=== PATIENT | male | born 1960 | race Caucasian/White ===

== ENCOUNTER 2023-06-08 15:48 | Day surgery (SDC) | payer BC, SELFPAY ==
[2023-06-08] VITALS (17 sets, daily range): BP systolic 139–175; BP diastolic 67–97; PULSE 80–95; RESP 14–18; TEMP 36.6–37.2; O2SAT 92–98; BMI 25.1
--- NOTE | 2023-06-08 15:54 | ED_ITS ---
HPI - General Adult General Date Seen: 06/08/23 Chief complaint: Sore Throat Stated complaint: Throat issues Time Seen by Provider: 06/08/23 15:54 History of Present Illness HPI narrative: 62-year-old gentleman referred to the ER today from the [facility] for e valuation of sore throat and asymmetric throat swelling. He is generally healthy. He is a smoker. He has a history of previous umbilical hernia repair and left kidney surgery. Rapid strep test from clinic was negative today. Patient notes that he began to have mild throat irritation the 5 days ago on night. 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 He had a mild sore throat the following day on Wednesday. However on Wednesday he noted that the pain in his throat really started to get worse and in particular was worse on the right side. He has had worsening pain over the subsequent couple of days. His special years when he tries to swallow. He is not having any trouble breathing. He has had low-grade fevers. He has had some chills and body aches. No headache. No cough. No vomiting. No diarrhea. No rash. He is not diabetic or immunosuppressed. No known sick contacts. Related Data Previous Rx's Medication Instructions Recorded amoxicillin 500 mg-potassium 1 tab PO TID #30 tabs 06/08/23 clavulanate 125 mg tablet (Augmentin) oxycodone 5 mg tablet,oral ONLY 5 mg PO Q4-6H PRN pain #14 ea 06/08/23 (not feeding tubes) Allergies Allergy/AdvReac Type Severity Reaction Status Date / Time No Known Drug Allergies Allergy Verified 06/08/23 17:58 [facility] Social History Smoking Status: Current every day smoker What tobacco products do you use: cigarettes Second hand tobacco smoke exposure: No Non-prescribed substance use: denies use service: No Exam Narrative: Exam Narrative: Constitutional: Appears well-developed and well-nourished. Alert. Conversant. Phonation normal. Non toxic. HENT: Head: Atraumatic. Nose: Nose normal. Mouth/Throat: Oral mucosa is clear and moist. no trismus. Pharynx is erythematous bilaterally. He has marked inflammation and erythema of the right soft palate and peritonsillar pillar with some deviation of the uvula from the right to the left. Suspicious for right peritonsillar abscess or phlegmon. Overall airway patent. Phonation normal. No stridor. No trismus Eyes: Conjunctivae normal. EOM normal. Pupils equal, round, and reactive to light. No scleral icterus. Neck: Normal range of motion. Neck supple. No tracheal deviation present. Cardiovascular: Normal rate, regular rhythm. No gallop. No friction rub. No murmur heard. Symmetric radial artery pulses Pulmonary/Chest: Effort normal. No stridor. No respiratory distress. No wheezes. No rales. No rhonchi . No tenderness. Abdominal: Soft. No distension. No mass. No HSM. No tenderness. No rebound. No guarding. Musculoskeletal: RUE: Normal range of motion. No tenderness. No deformity LUE: Normal range of motion. No tenderness. No deformity RLE: Normal range of motion. No edema. No tenderness. No deformity LLE: Normal range of motion. No edema. No tenderness. No deformity Lymph: Small right anterior cervical lymph nodes. No left cervix adenopathy Neurological: Alert and oriented to person, place, and time. Normal strength. CN II-VII intact. No sensory deficit. GCS eye subscore is 4. GCS verbal subscore is 5. GCS motor subscore is 6. Normal coordination Skin: Skin is warm and dry. No rash noted. No pallor. Normal capillary refill. Psychiatric: Normal mood. Normal affect. Const: Vital Signs, click to edit/add: Vital Signs - 24 hr 06/08/23 15:54 06/08/23 16:41 Temperature 98.5 F Pulse Rate [Pulse Oximeter] 93 Respiratory Rate 18 Blood Pressure [Ri ght Upper Arm] 175/79 H Pulse Oximetry 98 94 Oxygen Delivery Me thod Room Air Course Course ED Course: Recheck-verbal phone call from [facility] indicates that there is a report available for this patient. I reviewed the report and it does reveal evidence for a 2.2 cm peritonsillar abscess on the right which correlates clinically with the patient's symptoms Reevaluation(s) Reevaluation #1: Discussed the finding confirming abscess with the patient and his . We discussed options including aspiration under local anesthesia here in the ER which is something I am comfortable doing-verses incision and drainage by ENT in the OR with sedation. Patient strongly prefers to go to the OR and have sedation We made contact with ENT, Dr. Mandujano. He agrees with IV antibiotics and IV corticosteroids (already administered and he will come to the ER to evaluate the patient tonight with an eye toward taking him to the OR for incision and drainage. Vital Signs Vital signs: Initial Vital Signs Temperature 98.5 F 06/08/23 15:54 Temperature Source Temporal Artery Scan 06/08/23 15:54 Pulse Rate 93 06/08/23 15:54 Respiratory Rate 18 06/08/23 15:54 Blood Pressure 175/79 H 06/08/23 15:54 Blood Pressure Mean 111 H 06/08/23 15:54 Pulse Oximetry 98 06/08/23 15:54 Oxygen Delivery Method Room Air 06/08/23 15:54 Vital Signs Temperature 98.5 F 06/08/23 15:54 Pulse Rate 93 06/08/23 15:54 Respiratory Rate 18 06/08/23 15:54 Blood Pressure 175/79 H 06/08/23 15:54 Pulse Oximetry 98 06/08/23 15:54 Oxygen Delivery Method Room Air 06/08/23 15:54 Temperature 97.9 F 06/08/23 23:50 Pulse Rate 85 06/08/23 23:50 Respiratory Rate 16 06/08/23 23:50 Blood Pressure 155/89 H 06/08/23 23:50 Pulse Oximetry 98 06/08/23 23:50 Oxygen Delivery Method Room Air 06/08/23 22:44 Medications Administered Medications: Discontinued Medications Generic Name Dose Route Start Last Admin Trade Name Freq PRN Reason Stop Dose Admin Acetaminophen 320 mg 06/08/23 20:19 06/08/23 21:48 Acetaminophen 160 Mg/5 Ml Cup PO 320 mg Q4H PRN Administration Dexamethasone 4 mg 06/08/23 16:12 06/08/23 16:46 Dexamethasone 4 Mg/Ml Vial IV 06/08/23 16:13 4 mg ONCE ONE Administration Hydromorphone HCl 0.5 mg 06/08/23 16:12 06/08/23 19:27 Hydromorphone 0.5 Mg/0.5 Ml Inj IVP 0.5 mg Q1H PRN Administration Pain Ampicillin Sodium/Sulbactam 100 mls @ 200 mls/hr 06/08/23 16:12 06/08/23 17:20 Sodium 3 gm/ Sodium Chloride IVPB 06/08/23 16:13 Infused ONCE ONE Infusion Lactated Ringer's 1,000 mls @ 35 mls/hr 06/08/23 20:20 06/08/23 20:54 Lactated Ringers 1000 Ml IV 35 mls/hr .Q24H SHAN Infusion Ampicillin Sodium/Sulbactam 100 mls @ 200 mls/hr 06/08/23 22:00 06/08/23 22:06 Sodium 1.5 gm/ Sodium Chloride IVPB 200 mls/hr Q6H SHAN Administration Ibuprofen 200 mg 06/08/23 20:19 06/08/23 21:49 Ibuprofen 100 Mg/5 Ml Susp PO 200 mg Q4H PRN Administration Pain Ondansetron HCl 4 mg 06/08/23 16:12 06/08/23 16:46 Ondansetron 2 Mg/Ml Inj IVP 06/08/23 16:13 4 mg ONCE ONE Administration Medical Decision Making MDM Narrative Medical decision making narrative: 62-year-old gentleman presenting to the ER today from clinic with sore throat worsening for the past 4-5 days, in particular worsening for the past 2-3 days with asymmetric right Tonsillar swelling. Clinical exam and CT imaging confirm a right peritonsillar abscess. Labs show leukocytosis, otherwise reassuring patient has no history of diabetes or other immunosuppression P He does have significant swelling on the right and bilateral tonsillitis but at this point airway is patent. No stridor. No stress miss. He is controlling his oral secretions. No need for emergent airway intervention. He has received intravenous Unasyn and IV Decadron. He will need drainage for the abscess in addition to his IV antibiotics. Discussed options for drainage including aspiration done here in the ER under local anesthesia verses surgical intervention in the OR under sedation. Patient strongly prefers going to the OR under sedation. Discussed with ENT, Dr. Mandujano who will come to the ER tonight to evaluate the patient with an eye toward taking him to the OR. Patient has no previous diagnosed heart or lung disease. He is a tobacco user. No cardiac murmur. No history of coronary disease. Lung sounds are clear on my exam. No wheezing or other symptoms of COPD at this time. At this point the benefit of anesthesia and sedation to appropriately manage his peritonsillar abscess would outweigh the risk of cardiovascular complications from anesthesia. Overall would be low risk for anesthesia. He has been NPO since 09:30 this morning. Incidentally noted to have a pulmonary nodule. Discussed with the patient in detail. Recommended outpatient follow-up with primary care to arrange follow-up CT in 3 months. Lab Data Labs: Lab Results 06/08/23 Range/Units 16:24 WBC 12.63 H (4.50-11.00) K/uL RBC 4.70 (4.30-5.90) m/uL Hgb 15.0 (13.5-17.5) gm/dL Hct 45.0 (37.0-53.0) % MCV 96 (80-100) fL MCH 32 (26-34) pg MCHC 33 (32-36) gm/dL RDW Coeff of Katie 12.1 (11.5-15.5) % Plt Count 270 (140-440) K/uL Neut % (Auto) 79.5 H (42.0-72.0) % Lymph % (Auto) 12.6 L (20-44) % Forrest % (Auto) 6.5 (0.0-11.0) % Eos % (Auto) 1.0 (0.0-7.0) % Baso % (Auto) 0.2 (0.0-3.0) % Neut # (Auto) 10.00 H (1.7-7.0) K/uL Lymph # (Auto) 1.60 (0.90-2.90) K/uL Forrest # (Auto) 0.80 (0.00-0.90) K/UL Eos # (Auto) 0.10 (0.00-0.50) K/uL Baso # (Auto) 0.00 (0.00-0.30) K/uL Abs Immat Gran (auto) 0.00 (0.00-0.30) K/uL Imm/Tot Granulo (auto) 0.2 % Sodium 141 (135-149) mmol/L Potassium 4.0 (3.6-5.1) mmol/L Chloride 109 (96-114) mmol/L Carbon Dioxide 24 (20-32) mmol/L Anion Gap 8 (7-15) mEq/L BUN 14 (7-30) mg/dL Creatinine 0.8 (0.5-1.5) mg/dL Estimated Creat Clear 78.07 Estimated GFR 99 ml/min Glucose 99 (60-115) mg/dL Calcium 9.2 (8.4-10.6) mg/dL Total Bilirubin 0.7 (0.1-1.5) mg/dL AST 21 (12-35) U/L ALT 12 (4-50) U/L Alkaline Phosphatase 52 (40-150) U/L Total Protein 7.5 (6.0-8.3) g/dL Albumin 4.2 (3.3-5.0) g/dL Imaging Data CT neck: Attestation: I have reviewed the pertinent imaging results. Radiologist's impression: IMPRESSION: 1. Asymmetric enlargement of the right palatine tonsil with rim enhancing fluid collection measuring up to 2.2 cm concerning for tonsillar abscess. 2. Right upper lobe 1.2 cm noncalcified pulmonary nodule. Recommend short-term interval follow-up CT in 3 months, PET-CT or tissue sampling. Discharge Plan Discharge Clinical Impression: Abscess, peritonsillar, Incidental pulmonary nodule Patient Disposition: XFER to OR
--- NOTE | 2023-06-08 16:12 | CT_ITS ---
Patient: JOHN MAYNARD Facility:?[facility] Patient ID:?[id number] Site Patient ID:?[id number]. Site :?[id number] Study:?CT-ST Neck W/ 85CC ISOVUE 370-06/08/2023 6:10:25 PM Ordering Physician:MINA Final Report: INDICATION: Pharyngitis, right peritonsillar swelling. TECHNIQUE: CT soft tissue of the neck was acquired with 85 cc Isovue 370 contrast. COMPARISON: None available. FINDINGS: Skull base: Unremarkable. Pharynx/Larynx/Trachea: Epiglottis is normal. Airway is patent. There is asymmetric enlargement the right palatine tonsil with heterogeneous tonsillar enhancement and compatible with tonsillitis. There is a rim enhancing 1.7 x 1.3 x 2.2 cm hypodense collection centered within the right palatine tonsil concerning for abscess. No retropharyngeal thickening or fluid collection. Salivary glands: Unremarkable. Thyroid gland: Unremarkable. No significant nodules. Lymph nodes: No lymphadenopathy. Vessels: Mild atherosclerotic calcifications at the carotid bifurcations without significant luminal narrowing. Bones: Mild multilevel degenerative disc disease as well as facet arthropathy on the right at C3-C4 and on the left at C2-C3. Sinuses: Polyp versus mucous retention cysts within the maxillary sinuses. Otherwise clear. Misc: No cervical lymphadenopathy by size criteria. Lung apices: 1.2 cm noncalcified pulmonary nodule within the right lung apex. Minimal centrilobular emphysema. IMPRESSION: 1. Asymmetric enlargement of the right palatine tonsil with rim enhancing fluid collection measuring up to 2.2 cm concerning for tonsillar abscess. 2. Right upper lobe 1.2 cm noncalcified pulmonary nodule. Recommend short-term interval follow-up CT in 3 months, PET-CT or tissue sampling. Please note that all CT scans at this facility use dose modulation, iterative reconstruction, and/or weight-based dosing when appropriate to reduce radiation dose to as low as reasonably achievable. Dictated by Nan Muñoz MD @ 06/08/2023 6:31:49 PM ----- ADDENDUM ----- Confirmed report was received by Dr. Vanessa on 06/08/2023 at 6:33 p.m. Dictated by Nan Muñoz MD @ Jun 08 2023 6:39PM Signed by:?Nan Muñoz MD @06/08/2023 6:31:49 PM (Electronic Signature)
[2023-06-08 16:41] LABS: Basophils Percent Auto 0.2 % (0.0-3.0); Immature Granulocytes Pct Auto 0.2 %; Lymphocytes Percent Auto 12.6 % (20-44); Mean Corpuscular HGB Conc 33 gm/dL (32-36); Mean Corpuscular Hemoglobin 32 pg (26-34); Mean Corpuscular Volume 96 fL (80-100); Monocytes Percent Auto 6.5 % (0.0-11.0); Neutrophils Percent Auto 79.5 % (42.0-72.0); Platelet Count* 270 K/uL (140-440); RDW Coefficient of Variation % 12.1 % (11.5-15.5); White Blood Count* 12.63 K/uL (4.50-11.00)
[2023-06-08] MEDS: ONDANSETRON 2 MG/ML inj 4 MG IVP (16:46)
[2023-06-08] MEDS: HYDROmorphone 0.5 mg/0.5 ml inj IVP ×2 (16:46→19:27)
[2023-06-08] MEDS: dexAMETHasone 4 MG/ML VIAL IV (16:46)
[2023-06-08] MEDS: AMPICILLIN/SULBACTAM 3 GM in 0.9 % SODIUM CHLORIDE Mini-bag 100 ML IVPB (16:47)
[2023-06-08 17:00] LABS: Albumin* 4.2 g/dL (3.3-5.0); Chloride* 109 mmol/L (96-114); Sodium* 141 mmol/L (135-149)
[2023-06-08 17:02] LABS: Bilirubin Total* 0.7 mg/dL (0.1-1.5); Creatinine* 0.8 mg/dL (0.5-1.5); Est. Creatinine Clearance* 78.07; Estimated Glomerular Filt Rate 99 ml/min
[2023-06-08 17:03] LABS: Alanine Aminotransferase* 12 U/L (4-50); Alkaline Phosphatase* 52 U/L (40-150); Anion Gap 8 mEq/L (7-15); Aspartate Amino Transferase* 21 U/L (12-35); Blood Urea Nitrogen* 14 mg/dL (7-30); Calcium* 9.2 mg/dL (8.4-10.6); Carbon Dioxide* 24 mmol/L (20-32); Glucose* 99 mg/dL (60-115); Total Protein* 7.5 g/dL (6.0-8.3)
[2023-06-08 17:08] LABS: Slide Review Reflex No
--- NOTE | 2023-06-08 20:17 | W.PM.ENTCN ---
HPI- ENT Consult Date of Consult Date Seen: 06/08/23 Consult date: 06/08/23 Requesting Physician: Other Primary Care Provider: Aracelis Willson DO Consult Narrative Reason for consult: Right peritonsillar abscess Narrative: Derick Floyd is a 62 year old male several a history of sore throat increasing. He has significant pain with opening although is able to open widely. Pain is localized to the right side. He is not toxic no prior history of significant tonsil trouble. He are no reviewed he has already received a dose of Decadron and Unasyn PFSH PFS Social History Smoking Status: Current every day smoker What tobacco products do you use: cigarettes Second hand tobacco smoke exposure: No Non-prescribed substance use: denies use service: No Meds Home Medications and Allergies Allergies Allergy/AdvReac Type Severity Reaction Status Date / Time No Known Drug Allergies Allergy Verified 06/08/23 17:58 Exam Narrative: Exam Narrative: General skin neuro respiratory gait peripheral vascular vocal quality skin of head neck are all negative except Bright red right soft palate and uvula with significant boggy edema to the uvula normal lower airway neck parotid thyroid negative, voice normal Const: Vital Signs, click to edit/add: Vital Signs - 24 hr 06/08/23 15:54 06/08/23 16:41 06/08/23 20:15 Temperature 98.5 F Pulse Rate [Pulse Oximeter] 93 Respiratory Rate 18 Blood Pressure [Ri ght Upper Arm] 175/79 H Pulse Oximetry 98 94 Oxygen Delivery Me thod Room Air Room Air ENT-CN: Result Labs Labs: Short CBC 06/08/23 Range/Units 16:24 WBC 12.63 H (4.50-11.00) K/uL Hgb 15.0 (13.5-17.5) gm/dL Hct 45.0 (37.0-53.0) % Plt Count 270 (140-440) K/uL BMP 06/08/23 16:24 Sodium 141 Potassium 4.0 Chloride 109 Carbon Dioxide 24 BUN 14 Creatinine 0.8 Glucose 99 Calcium 9.2 Liver Function 06/08/23 Range/Units 16:24 Total Bilirubin 0.7 (0.1-1.5) mg/dL AST 21 (12-35) U/L ALT 12 (4-50) U/L Alkaline Phosphatase 52 (40-150) U/L Albumin 4.2 (3.3-5.0) g/dL Assessment and Plan Assessment and plan (1) Abscess, peritonsillar: Status: Acute Plan Right peritonsillar abscess with uvular and palatal cellulitis. Discussed options of incision and drainage versus observation with IV antibiotics and steroids. I would favor incision and drainage giving the involvement of the palate in addition to the peritonsillar space. There is some chance this is intra tonsillar as well. Will determine at time of surgery. Risks of surgery including anesthesia bleeding recurrence etc. all reviewed.
[2023-06-08] MEDS: LACTATED RINGERS 1000 ML 1,000 ML 35 ML IV (20:20)
--- NOTE | 2023-06-08 20:37 | W.PM.ENTPROC ---
Procedure Note Date of procedure: 06/08/23 Procedure: Preoperative diagnosis right peritonsillar abscess, uvular cellulitis Postoperative diagnosis same Procedure amputation of infected uvula, incision and drainage right peritonsillar abscess After general endotracheal anesthesia was induced the patient was prepped draped usual fashion the McIvor mouth gag inserted the tongue retracted forward. The uvula was swollen to approximately 3 cm length and 1.5 cm diameter approximately 10 times normal size or more. The lower half was amputated with a needlepoint cautery decompressing the brawny edema. An incision was made with the needlepoint cautery just above the right tonsil pole overlying the most swollen portion of the palate. Is about 3 mm deep I encountered the abscess cavity. Culture was obtained. The cavity was widened and all the pus was drained. Was proximately 5 mL. The cavity was irrigated with a red rubber catheter and saline. Bleeding was controlled with Coblation. The patient procedure well was taken recovery satisfactory condition blood loss was 5 mL. Cultures pending Surgeon: Ki Mandujano MD
--- NOTE | 2023-06-08 20:57 | P.ANES_ITS ---
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
--- NOTE | 2023-06-08 21:38 | SUR.PHASEI ---
patient met discharge criteria per [employer].
[2023-06-08] MEDS: ACETAMINOPHEN 160 MG/5 ML CUP 320 MG PO (21:48)
[2023-06-08] MEDS: IBUPROFEN 100 MG/5 ML SUSP 200 MG PO (21:49)
[2023-06-08] MEDS: AMPICILLIN/SULBACTAM 1.5 GM in 0.9 % SODIUM CHLORIDE Mini-bag 100 ML IVPB (22:06)
--- NOTE | 2023-06-08 23:01 | PC.NURSE ---
Initial VS on Med Surg by RN was actually @ 2125. 2024 was entered in error by RN.
--- NOTE | 2023-06-08 23:50 | PC.NURSE ---
Pt dischg @ 8697. VSS. No N/V. Pain controlled. Walked out with spouse. Instructions given. IV removed by RN intact.
== END 2023-06-08 23:50 | disposition home or self-care (01) ==
LOC: ED 19:49 → OR 20:15 → MEDSURG 21:37
PROVIDERS: Emergency Provider Emergency Medicine; PCP Family Medicine; Visit Provider Otolaryngology
PROC: 0C9PXZZ Drainage of Tonsils, External Approach (ICD-10-PCS; CPT 42700; principal; 2023-06-08 20:00)
DX: J36 Peritonsillar abscess (principal); K12.2 Cellulitis and abscess of mouth; R91.1 Solitary pulmonary nodule; F17.210 Nicotine dependence, cigarettes, uncomplicated
CPT/HCPCS: 42140; 42700; 00170; 36415; 70491; 80053; 85025; 87070; 87075; 87205; 88305; 94761; 99140; 99285; A9270; J0295; J0330; J1100; J1170; J2405; J2704; J3010; J7120; Q9967

== ENCOUNTER 2024-10-06 15:01 | Emergency (ER) | payer BC, SELFPAY ==
--- OUTSIDE RECORDS SUMMARY | 2024-10-06 15:03 | XMS_ITS | Clinical Summary ---
Author Organization [facility] US PREVENTIVE MEDICINE [facility] Address [address] [place] [address] Care Team Providers Care Seal Delivery Vehicle Officer Name Role Phone Aracelis Willson DO Primary Care Provider Allergies Active Allergy Reactions Criticality Noted Date Comments Oxycodone Hives 09/06/2023 Medications triamcinolone 0.1 % ointmentIndicat ions:Dry skin dermatitis Apply topically to affected area(s) two times daily. 30 g 5 Active aspirin 81 mg enteric coated tabletIndicatio ns:Left carotid bruit Take 1 Tablet (81 mg) by mouth once daily with a meal. 100 Tablet 3 5 Active Active Problems No known active problems Encounters Date Type Department Care Team Description 10/04/2024 4:00 PM CDT Ancillary Procedure [facility] [address] [place] [address] Arrived 10/04/2024 Travel 10/03/2024 Telephone [facility] [address] [place] [address] [place], [facility] Referral (INcidental 11mm nodule on a CTA. Will be getting full chest ct prior to referral. Smoker./report recommended pulm consult vs pet CT chest./) 09/20/2024 Telephone [facility] [address] [place] [address] Aracelis Willson DO Questions (CT scan results. ); Referral 09/15/2024 3:00 PM CDT Ancillary Procedure [facility] [address] [place] [address] 09/15/2024 Travel 09/11/2024 Telephone [facility] [address] [place] [address] Aracelis Willson DO Testing 08/25/2024 Orders Only [facility] [address] [place] [address] Karen Rodriguez NP <No scans attached> 08/25/2024 Telephone [facility] [address] [place] [address] Abner Lawson MD Referral 08/21/2024 Telephone [facility] [address] [place] [address] Aracelis Willson DO Imaging (ultrasound of the neck) 08/18/2024 Orders Only [facility] [address] [place] [address] Aracelis Willson DO <No scans attached> 08/15/2024 10:47 AM CDT - 08/15/2024 11:59 PM CDT Hospital Encounter [facility] [address] [place] [address] Aracelis Willson DO Dry skin dermatitis; Left carotid bruit 08/15/2024 Travel 08/07/2024 4:20 PM CDT Office Visit [facility] [address] [place] [address] Aracelis Willson DO Derm Problem (left calf has sore on it for about 3 months/itches- breaks open and is pussy) 08/07/2024 Travel from Last 3 Months Immunizations Immunization Administration Dates Next Due COVID-19 vaccine (Sykio 30mcg/0.3mL) EMIL Adhikari 09/27/2020,09/06/2020 Influenza, IIV4 12/16/2015 Td (Age >=7 Years) 11/26/1998 Tdap 12/30/2023,05/24/2008 Family History Medical History Relation Name Comments Heart Disease Brother valvular disea se Diabetes Father Heart Disease Father valvular disea se Cancer Maternal Aunt 1 lung Thyroid Disease Maternal Aunt 2 hypothyro id Diabetes Maternal Grandmother Cancer Maternal Uncle stomach Hypertension Sister Relation Name Status Comments Brother Father Maternal Aunt 1 Maternal Aunt 2 Maternal Grandmother Maternal Uncle Sister Social History Tobacco Use Types Packs/Day Years Used Date Smoking Tobacco: Every Day Cigarettes Smokeless Tobacco: Never Tobacco Cessation:Ready to Q uit: Not Asked; Counseling Given: Not Answered Alcohol Use Standard Drinks/Week Comments Yes 20 (1 standard drink = 0.6 oz pu re alcohol) 6 pack a night PHQ-2 Answer Date Recorded PHQ-2 TOTAL SCORE 0 12/30/2023 Social Connections Answer Date Recorded Frequency of Communication with Friends and Fami ly 0 05/04/2022 Financial Resource Strain Answer Date R ecorded Difficulty of Paying Living Expenses 3 05/04/2022 Difficulty of Paying Living Expenses Not on file 05/04/2022 Food Insecurity Answer Date Recorded Worried About Running Out of Food in the Last Ye ar 1 05/04/2022 Transportation Needs Answer Date Record ed Lack of Transportation (Medical) 1 05/04/2022 Housing Stability Answer Date Recorded Unable to Pay for Housing in the Last Year 1 05/04/2022 Sex and Gender Information Value Date Recorded Sex Assigned at Not on file 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 Gender Identity Not on file Sexual Orientation Not on file Occupation Industry Job Start Date Job End Date Not on file Not on file Not on file Not on file Obstetrics History Last Filed Vital Signs Vital Sign Reading Time Taken Comments Blood Pressure 142/79 08/07/2024 4:27 PM CDT Pulse 75 08/07/2024 4:27 PM CDT Temperature 36.6 C (97.9 F) 09/06/2023 8:55 AM CDT Respiratory Rate - - Oxygen Saturation 96% 08/07/2024 4:27 PM CDT Inhaled Oxygen Concentration - - Weight 79.7 kg (175 lb 12.8 oz) 08/07/2024 4:27 PM CDT Height 175.3 cm (5' 9) 12/30/2023 8:05 AM CDT Body Mass Index 25.96 12/30/2023 8:05 AM CDT Plan of Treatment Upcoming Encounters Date Type Department Care Team (Late st Contact Info) Description 10/27/2024 10:00 AM CDT Office Visit [facility] [address] [place] [address] Sabas Barr MD [address] [facility] [address] [place] [address] 10/27/2024 2:00 PM CDT Office Visit [facility] [address] [place] [address] Ellis Cordero MD [address] [facility] [[email or web address] [address] [place] [address] Health Maintenance Due Date Last Done Comments HIV for age 15-65 11/17/1974 Pneumococcal series for age 50+ (1 of 2 - PCV) 11/17/1978 Colonoscopy through age 75 11/17/2004 Zoster (shingles) series for age 50+ (1 of 2) 11/17/2009 RSV vaccine for adults or (1 - Risk 60-74 years 1-dose series) 2019 COVID-19 vaccine series (3 - 2023- season) 2023 09/27/2020, 09/06/2020 Influenza Vaccine (#1) 2024 12/16/2015 BMI (ht and wt on same day) for age 18+ 12/29/2024 12/30/2023, 03/01/2017, 12/25/2015, Additional history exists Depression screening for age 12+ 12/29/2024 12/30/2023, 12/10/2015 Lipids for age 45-75 12/29/2028 12/30/2023, 09/16/19 14 Tetanus booster 12/29/2033 12/30/2023, 05/06, 11/26/1998 Hepatitis C screening for age 18-79 Completed 09/15/2013 Hepatitis B series for 19+ Aged Out N o longer eligible based on patient's age to complete this topic Procedures Procedure Name Priority Date/Time Associated Diagnosis Comments CT CHEST WO Routine 10/04/2024 4:06 PM CDT Lung nodule seen on imaging study Nodule of apex of lung Incidental lung nodule, greater than or equal to 8mm CT ANGIO HEAD AND NECK CAROTID Routine 09/15/2024 3:21 PM CDT Nonintractable headache, unspecified chronicity pattern, unspecified headache type US CAROTID DUPLEX BILATERAL REBEKAH 08/15/2024 12:08 PM CDT Dry skin dermatitis Left carotid bruit LIPID PANEL Routine 12/30/2023 8:44 AM CDT Encounter for examination for insurance purposes ANTI HCV Routine 09/15/2013 4:06 PM CDT Need for hepatitis C screening test from Last 3 Months or Most Recently Relevant to Health Maintenance Results * CT CHEST WO (10/04/2024 4:06 PM CDT) Anatomical Region Laterality Modality CHEST, THORAX, HEART Computed To mography 10/05/2024 3:09 PM CDT Narrative 10/05/2024 3:09 PM CDT For Patients: As a result of the Century Cures Act, medical imaging exams and procedure reports are released immediately into your electronic medical record. You may view this report before your referring provider. If you have questions, please contact your health care provider. Indication: Pulmonary nodule Technique: Noncontrast CT chest Please note that all CT scans at this facility use dose modulation, iterative reconstruction, and/or weight-based dosing when appropriate to reduce radiation dose to as low as reasonably achievable. Comparison: CT neck 09/15/2024 Findings: Diffuse thickening of the adrenal glands noted bilaterally. The spleen is not enlarged. Unremarkable visualized pancreas and liver. Normal incompletely distended gallbladder. Visualized thyroid is normal. Atherosclerotic changes. No enlarged lymph nodes. [place] nodule within the right upper lobe measures 1.4 x 1.2 cm. Slightly lobular margins noted. Paraseptal emphysema. No fracture. Tiny nodules are present also within the right middle lobe measuring 2 millimeters or less. Impression: 1.4 x 1.2 cm right upper lobe pulmonary nodule. CT PET recommended. Please note that all CT scans at this facility use dose modulation, iterative reconstruction, and/or weight-based dosing when appropriate to reduce radiation dose to as low as reasonably achievable. Dictated by Derick Trent MD @ 10/05/2024 3:09:00 PM (Electronically Signed) Procedure Note Derick Trent MD - 10/05/2024 For Patients: As a result of the Cures Act, medical imagingexams and procedure reports are released immediately into your electronicmedical record. You may view this report before your referring provider.If you have questions, please contact your health care provider. Indication: Pulmonary nodule Technique: Noncontrast CT chest Please note that all CT scans at this facility use dose modulation,iterative reconstruction, and/or weight-based dosing when appropriate toreduce radiation dose to as low as reasonably achievable. Comparison: CT neck 09/15/2024 Findings: Diffuse thickening of the adrenal glands noted bilaterally. The spleen isnot enlarged. Unremarkable visualized pancreas and liver. Normalincompletely distended gallbladder. Visualized thyroid is normal.Atherosclerotic changes. No enlarged lymph nodes. [place] nodule within theright upper lobe measures 1.4 x 1.2 cm. Slightly lobular margins noted.Paraseptal emphysema. No fracture. Tiny nodules are present also withinthe right middle lobe measuring 2 millimeters or less. Impression: 1.4 x 1.2 cm right upper lobe pulmonary nodule. CT PET recommended. Please note that all CT scans at this facility use dose modulation,iterative reconstruction, and/or weight-based dosing when appropriate toreduce radiation dose to as low as reasonably achievable. Dictated by Derick Trent MD @ 10/05/2024 3:09:00 PM (Electronically Signed) Aracelis Willson DO CT Final Resul t * CTA HEAD AND NECK CAROTID (09/15/2024 3:21 PM CDT) Anatomical Region Laterality Modality BRAIN, NECK Computed Tomogra phy 09/16/2024 9:07 AM CDT Addenda Addendum by Brandon Servin MD on 09/16/2024 9:33 AM CDT For Patients: As a result of the Cures Act, medical imaging exams and procedure reports are released immediately into your electronic medical record. You may view this report before your referring provider. If you have questions, please contact your health care provider. CLINICAL HISTORY: Headache. TECHNIQUE: Standard helical CT image acquisition through the head following the administration of intravenous contrast was performed. 3D and MIP reconstructions were performed at a separate workstation and permanently archived. COMPARISON: None available. FINDINGS: No intracranial proximal large vessel occlusion or flow-limiting luminal stenosis. No evidence of cerebral aneurysm. No findings to suggest an arterial-venous shunting lesion. The major dural venous sinuses and deep venous system are patent. IMPRESSION: No intracranial proximal large vessel occlusion, flow-limiting luminal stenosis, or cerebral aneurysm. Please note that all CT scans at this facility use dose modulation, iterative reconstruction, and/or weight-based dosing when appropriate to reduce radiation dose to as low as reasonably achievable. Dictated by Brandon Servin MD @ 09/16/2024 9:33:36 AM (Electronically Signed) Impressions 09/16/2024 9:07 AM CDT 1. Moderate right vertebral artery origin stenosis. 2. Severe left vertebral artery origin stenosis. 3. 11mm pulmonary nodule at the apex of the right lung. Consider consultation with pulmonology and PET-CT should be considered. Please note that all CT scans at this facility use dose modulation, iterative reconstruction, and/or weight-based dosing when appropriate to reduce radiation dose to as low as reasonably achievable. Dictated by Brandon Servin MD @ 09/16/2024 9:07:31 AM (Electronically Signed) Narrative 09/16/2024 9:07 AM CDT For Patients: As a result of the Cures Act, medical imaging exams and procedure reports are released immediately into your electronic medical record. You may view this report before your referring provider. If you have questions, please contact your health care provider. INDICATION: Headache. COMPARISON: None available. TECHNIQUE: CTA neck with contrast bolus tracking, 3D angiographic rendering using maximum intensity projection (MIP) and images permanently archived. FINDINGS: The origins of the great vessels are patent. There is carotid atherosclerosis bilaterally. There is no significant carotid artery stenosis or dissection. There is a moderate right vertebral artery origin stenosis. There is a severe left vertebral artery origin stenosis. 11mm pulmonary nodule in the apex of the right lung. Procedure Note Brandon Servin MD - 09/16/2024 For Patients: As a result of the Cures Act, medical imagingexams and procedure reports are released immediately into your electronicmedical record. You may view this report before your referring provider.If you have questions, please contact your health care provider. INDICATION: Headache. COMPARISON: None available. TECHNIQUE: CTA neck with contrast bolus tracking, 3D angiographic rendering usingmaximum intensity projection (MIP) and images permanently archived. FINDINGS: The origins of the great vessels are patent. There is carotid atherosclerosis bilaterally. There is no significant carotid artery stenosis or dissection. There is a moderate right vertebral artery origin stenosis. There is a severe left vertebral artery origin stenosis. 11mm pulmonary nodule in the apex of the right lung. IMPRESSION: 1. Moderate right vertebral artery origin stenosis. 2. Severe left vertebral artery origin stenosis. 3. 11mm pulmonary nodule at the apex of the right lung. Considerconsultation with pulmonology and PET-CT should be considered. Please note that all CT scans at this facility use dose modulation,iterative reconstruction, and/or weight-based dosing when appropriate toreduce radiation dose to as low as reasonably achievable. Dictated by Brandon Servin MD @ 09/16/2024 9:07:31 AM (Electronically Signed) us Ellis Cordero MD CT Edited Result - Final * US CAROTID DUPLEX BILATERAL (08/15/2024 12:08 PM CDT) Anatomical Region Laterality Modality CAROTID, NECK Ultrasound Impressions 08/17/2024 2:35 PM CDT Minor plaque formation within the proximal cervical ICAs resulting in no hemodynamically significant narrowing. Colby Friedman D.O. Neuroradiologist [email or web address] MAYTE/monty / Narrative 08/17/2024 2:35 PM CDT Table formatting from the original result was not included. For Patients: As a result of the Cures Act, medical imaging exams and procedure reports are released immediately into your electronic medical record. You may view this report before your referring provider. If you have questions, please contact your health care provider. CAROTID ULTRASOUND BILATERAL 08/15/2024 CLINICAL HISTORY: Left carotid bruit. TECHNIQUE: The carotid circulations and the vertebral arteries in the neck were examined with hall-scale ultrasound, color-flow and Doppler spectral analysis. Degrees of stenosis were determined using SRU 2002 Consensus Panel Criteria. COMPARISON: None. FINDINGS: Minor plaque formation seen within the proximal cervical ICAs bilaterally. Antegrade flow within the vertebral arteries bilaterally. Multiphasic flow in the subclavian arteries bilaterally. RIGHT PSV EDV CCA 76 21 ICA Proximal 63 14 ICA Mid 75 26 ICA Distal 98 36 ECA 128 21 Vertebral Ante 38 9 Subclavian Tri-Bi 134 ICA/CCA 1.0 LEFT PSV EDV CCA 94 24 ICA Proximal 85 18 ICA Mid 64 19 ICA Distal 104 34 ECA 139 21 Vertebral Ante 38 15 Subclavian Tri-Bi 145 ICA/CCA 0.75 us Aracelis Willson DO US Final Resul t * LIPID PANEL (12/30/2023 8:44 AM CDT) CHOLESTEROL, TOTAL 132 <200 mg/dL [facility] HDL CHOLESTEROL 41 > OR = 40 mg/dL [facility] TRIGLYCERIDES 54 <150 mg/dL [facility] LDL-CHOLESTEROL 78 mg/dL (calc) [facility] Comment: Reference range: <100 Desirable range <100 mg/dL for primary prevention; <70 mg/dL for patients with CHD or diabetic patients with > or = 2 CHD risk factors. LDL-C is now calculated using the Nish-Marino calculation, which is a validated novel method providing better accuracy than the Friedewald equation in the estimation of LDL-C. Nish SS et al. CHANDNI. 2013;310(19): 8396-8641 (http://education.daysoft.Planetary Resources/faq/BFS234) CHOL/HDLC RATIO 3.2 <5.0 (calc) [facility] NON HDL CHOLESTEROL 91 <130 mg/dL (calc) [facility] Comment: For patients with diabetes plus 1 major ASCVD risk factor, treating to a non-HDL-C goal of <100 mg/dL (LDL-C of <70 mg/dL) is considered a therapeutic option. Blood BLOOD SPECIMEN / Unknown 12/30/2023 8:44 AM CDT 12/30/2023 8:46 AM CDT Narrative [facility] - 12/31/2023 5:12 AM CDT SPLIT 12/30/2023 FROM [id number], [id number] Sam Pratt DO CHEMISTRY Final Result Performing Organization Address City/[facility]/ZIP Co de Phone Number [facility] [address] [place] [address], [facility] [address] [place] [address] * ANTI HCV [20162.2] (09/15/2013 4:06 PM CDT) HEPATITIS C ANTIBODY Non-Reacti ve Non-Reacti ve 09/15/2013 7:40 PM CDT [facility] Blood specimen (specimen) BLOOD SPECIMEN / Unknown Venipuncture / Unknown 09/15/2013 4:06 PM CDT 09/15/2013 4:06 PM CDT Narrative [facility] - 09/15/2013 7:40 PM CDT Antibodies to HCV not detected; does not exclude the possibility of exposure to HCV. Aracelis Willson DO SEND OUTS Final Resul t [facility] [address] [place] [address], from Last 3 Months or Most Recently Relevant to Health Maintenance Insurance [facility] [employer] Care Teams Seal Delivery Vehicle Officer Relationship Specialty Start Date End Date Aracelis Willson DO PCP - General 11/08/08
[2024-10-06 15:24] VITALS: BP 142/76; PULSE 77; RESP 16; TEMP 36.6; O2SAT 96; BMI 25.0
[2024-10-06 16:20] LABS: Appearance Urine Clear (Clear)
[2024-10-06 16:32] LABS: Hematocrit 44.3 % (37.0-53.0); Hemoglobin* 15.1 gm/dL (13.5-17.5); Immature Granulocytes Abs Auto 0.01 K/uL (0.00-0.30); Immature Granulocytes Pct Auto 0.1 %; Lymphocytes Absolute Auto 1.85 K/uL (0.90-2.90); Mean Corpuscular HGB Conc 34 gm/dL (32-36); Mean Corpuscular Hemoglobin 32 pg (26-34); Mean Corpuscular Volume 94 fL (80-100); RDW Coefficient of Variation % 12.2 % (11.5-15.5); Red Blood Count 4.70 m/uL (4.30-5.90); White Blood Count* 7.94 K/uL (4.50-11.00)
[2024-10-06 16:41] LABS: Albumin* 4.6 g/dL (3.3-5.0); Chloride* 105 mmol/L (96-114)
[2024-10-06 16:42] LABS: Potassium* 4.4 mmol/L (3.6-5.1); Sodium* 138 mmol/L (135-149)
[2024-10-06 16:43] LABS: Slide Review Reflex No
[2024-10-06 16:44] LABS: Alanine Aminotransferase* 16 U/L (4-50); Anion Gap 9 mEq/L (7-15); Aspartate Amino Transferase* 39 U/L (12-35); Bilirubin Direct* 0.3 mg/dL (0.0-0.5); Bilirubin Total* 1.3 mg/dL (0.1-1.5); Blood Urea Nitrogen* 10 mg/dL (7-30); Carbon Dioxide* 24 mmol/L (20-32); Creatinine* 0.7 mg/dL (0.5-1.5); Est. Creatinine Clearance* 77.06; Estimated Glomerular Filt Rate 103 ml/min
[2024-10-06 16:45] LABS: Alkaline Phosphatase* 37 U/L (40-150); Calcium* 8.8 mg/dL (8.4-10.6); Glucose* 85 mg/dL (60-115); Total Protein* 7.4 g/dL (6.0-8.3)
--- NOTE | 2024-10-06 18:35 | ED_ITS ---
HPI - General Adult General Date Seen: 10/06/24 Chief complaint: Abdominal Pain Stated complaint: Pain in lower RT front abdomin Time Seen by Provider: 10/06/24 15:39 History of Present Illness HPI narrative: Patient is a 63-year-old male here at the bequest of his for evaluation of right lower quadrant pain that he developed about 6 hours ago. It is now gone. When it was there, he says it was pretty bad, it particularly hurt to bend over. He did not have any associated vomiting although maybe felt a little nauseated. He has not had any urinary symptoms such as burning or blood, has not had any changes in his stools. No fevers. No history of similar abdominal pain. He did not note any bulges or testicular pain. Pain resolved on the way here but his wanted him to come be seen so he agreed. He notes tobacco use, very regular alcohol use. Related Data Home Medications ?Medication ?Instructions ?Recorded ?Confirmed aspirin 81 mg tablet,delayed 81 mg PO DAILY 10/06/24 0 10/06/24 release Allergies Allergy/AdvReac Type Severity Reaction Status Date / Time No Known Drug Allergies Allergy Verified 10/06/24 15:24 Review of Systems Status of ROS: Reports: 10 or more systems reviewed and unremarkable except as noted in History and below PFSH [facility] Social History Smoking Status: Current every day smoker What tobacco products do you use: cigarettes Second hand tobacco smoke exposure: No How often do you have a drink containing alcohol: 2-3 times a week AUDIT-C Alcohol total score: 3 Non-prescribed substance use: denies use service: No Exam Narrative: Exam Narrative: Vital signs reviewed In general, alert, nontoxic Min age male. Looks comfortable. Head: Normocephalic, atraumatic. Eyes: Sclera clear. Pupils equal and reactive. ENT: Mucous membranes moist. Neck: Supple without adenopathy. Heart: Regular rate and rhythm without murmur. Lungs: Clear. No increased work of breathing, crackles or wheezes. Abdomen: Soft, nontender to palpation. Specifically no right lower quadrant tenderness, no rebound guarding or rigidity. No evidence of abdominal wall hernia. No pulsatile mass. Extremities: Well perfused, pulses intact. No significant edema. Neurologic: Alert, conversant. Speech fluent, face symmetric. Moves all extremities equally. Skin: Warm, dry well perfused. Affect: Normal. Const: Vital Signs, click to edit/add: Vital Signs - 24 hr 10/06/24 15:24 Temperature 97.8 F Pulse Rate [Pulse Oximeter] 77 Respiratory Rate 16 Blood Pressure [Ri ght Upper Arm] 142/76 H Pulse Oximetry 96 Oxygen Delivery Me thod Room Air Course Course ED Course: Patient and his generally disagree as to whether not this episode deserves further attention. He seems to be not at all concerned, she seems quite worried that as soon as they leave he will have recurrence of pain and they will have to come back. We talked about options in terms of strictly observation, labs, imaging. Ultimately we agreed to do some labs and let that guide us a little bit as to whether not further evaluation would be warranted. We talked about possible causes for the pain such as hernia, appendicitis, biliary colic, kidney stone, pulled muscle. At least as of right now, he indicates pain fairly low in the right abdomen, seems unlikely to be biliary colic. Kidney stone would certainly be a possibility. Appendicitis also seems less likely given that symptoms have resolved. We did check a urine, this is entirely negative without hematuria. His white blood cell count is normal at 7.9, normal diff, normal electrolytes, normal kidney function. Total bilirubin is 1.3, AST is 139, ALT of 16. With regular alcohol use this is not surprising. CRP is less than 0.5. Lipase is 161. I reviewed all this with the patient his . He continues to be pain-free. Based on this I do not think there are any clear indications here that imaging is needed at this time. Discussed reasons to return. Primary care follow-up for ongoing concerns. Reviewed that we have not determine the cause and so if he has recurrent pain he should be re-evaluated. Vital Signs Vital signs: Initial Vital Signs Temperature 97.8 F 10/06/24 15:24 Temperature Source Temporal Artery Scan 10/06/24 15:24 Pulse Rate 77 10/06/24 15:24 Pulse Rhythm Regular 10/06/24 15:24 Respiratory Rate 16 10/06/24 15:24 Blood Pressure 142/76 H 10/06/24 15:24 Blood Pressure Mean 98 10/06/24 15:24 Blood Pressure Position Sitting 10/06/24 15:24 Pulse Oximetry 96 10/06/24 15:24 Oxygen Delivery Method Room Air 10/06/24 15:24 Vital Signs Temperature 97.8 F 10/06/24 15:24 Pulse Rate 77 10/06/24 15:24 Respiratory Rate 16 10/06/24 15:24 Blood Pressure 142/76 H 10/06/24 15:24 Pulse Oximetry 96 10/06/24 15:24 Oxygen Delivery Method Room Air 10/06/24 15:24 Temperature 97.8 F 10/06/24 15:24 Pulse Rate 77 10/06/24 15:24 Respiratory Rate 16 10/06/24 15:24 Blood Pressure 142/76 H 10/06/24 15:24 Pulse Oximetry 96 10/06/24 15:24 Oxygen Delivery Method Room Air 10/06/24 15:24 Medical Decision Making Lab Data Labs: Lab Results 10/06/24 10/06/24 Range/Units 16:09 16:20 WBC 7.94 (4.50-11.00) K/uL RBC 4.70 (4.30-5.90) m/uL Hgb 15.1 (13.5-17.5) gm/dL Hct 44.3 (37.0-53.0) % MCV 94 (80-100) fL MCH 32 (26-34) pg MCHC 34 (32-36) gm/dL RDW Coeff of Katie 12.2 (11.5-15.5) % Plt Count 189 (140-440) K/uL Neut % (Auto) 66.1 (42.0-72.0) % Lymph % (Auto) 23.3 (20-44) % [place] % (Auto) 7.2 (0.0-11.0) % Eos % (Auto) 2.8 (0.0-7.0) % Baso % (Auto) 0.5 (0.0-3.0) % Neut # (Auto) 5.25 (1.7-7.0) K/uL Lymph # (Auto) 1.85 (0.90-2.90) K/uL [place] # (Auto) 0.60 (0.00-0.90) K/UL Eos # (Auto) 0.22 (0.00-0.50) K/uL Baso # (Auto) 0.04 (0.00-0.30) K/uL Abs Immat Gran (auto) 0.01 (0.00-0.30) K/uL Imm/Tot Granulo (auto) 0.1 % Sodium 138 (135-149) mmol/L Potassium 4.4 (3.6-5.1) mmol/L Chloride 105 (96-114) mmol/L Carbon Dioxide 24 (20-32) mmol/L Anion Gap 9 (7-15) mEq/L BUN 10 (7-30) mg/dL Creatinine 0.7 (0.5-1.5) mg/dL Estimated Creat Clear 77.06 Estimated GFR 103 ml/min Glucose 85 (60-115) mg/dL Calcium 8.8 (8.4-10.6) mg/dL Total Bilirubin 1.3 (0.1-1.5) mg/dL Direct Bilirubin 0.3 (0.0-0.5) mg/dL AST 39 H (12-35) U/L ALT 16 (4-50) U/L Alkaline Phosphatase 37 L (40-150) U/L C-Reactive Protein < 0.5 L (0.5-1.0) mg/dL Total Protein 7.4 (6.0-8.3) g/dL Albumin 4.6 (3.3-5.0) g/dL Lipase 161 (23-300) U/L Urine Color Jenna A (Yellow) Urine Appearance Clear (Clear) Urine pH 5.5 (5.0-8.5) Ur Specific [place] 1.025 (1.000-1.030) Urine Protein Negative (Negative) Urine Glucose (UA) Negative (Negative) Urine Ketones Negative (Negative) Urine Blood Negative (Negative) Urine Nitrite Negative (Negative) Urine Bilirubin Negative (Negative) Urine Urobilinogen 0.2 (0.2-1.0) Ur Leukocyte Esterase Negative (Negative) Urine RBC 0-2 (0-2) Urine WBC 0-2 (0-5) Ur Squamous Epith Cells None (None-Few) Urine Bacteria None (None) Discharge Plan Discharge Clinical Impression: Abdominal pain, RLQ Patient Disposition: Home, Self-Care Condition: Improved Instructions: Abdominal Pain (ED) Additional Instructions: Your blood work and urinalysis are normal today. There is no evidence of infection, no blood to suggest kidney stone. Given that your pain has resolved, for today I think it is reasonable to let you go home and see how you feel. If pain recurs, if you have new symptoms such as vomiting, fever, or other worsening, return for re-evaluation. Prescriptions: No Action aspirin 81 mg tablet,delayed release (DR/EC) 81 mg PO DAILY Follow Up/Referrals: Aracelis Willson, [Primary Care Provider, Family Practice] Stand Alone Forms: [facility] Info Instructions
== END 2024-10-06 17:08 | disposition home or self-care (01) ==
PROVIDERS: Emergency Provider Emergency Medicine; PCP Family Medicine
DX: R10.31 Right lower quadrant pain (principal); R11.0 Nausea; F10.90 Alcohol use, unspecified, uncomplicated; Z72.0 Tobacco use
CPT/HCPCS: 36415; 80048; 80076; 81001; 83690; 85025; 86140; 99283; 99284

== ENCOUNTER 2024-10-19 15:27 | Outpatient (CLI) | payer BC, SELFPAY ==
--- NOTE | 2024-10-19 16:00 | CRLHL7_ITS ---
For Patients: As a result of the Century Cures Act, medical imaging exams and procedure reports are released immediately into your electronic medical record. You may view this report before your referring provider. If you have questions, please contact your health care provider. Indication: Pulmonary nodule Technique: Radiopharmaceutical: 18F-fluorodeoxyglucose (18F-FDG) Dose: 12.5 [place] Blood Glucose: 70 mg/dL Image Acquisition: At approximately 60 min following IV tracer administration via a left antecubital vein, positron emission tomography was performed from the skull base to the mid thigh. Noncontrast low-dose helical CT imaging was performed over the same range without breath hold for attenuation correction of PET images and anatomic correlation; it is neither sufficient, nor should it be substituted for diagnostic purposes. Comparison: Chest CT 10/04/2024 Findings: Mediastinal blood pool FDG uptake: SUVMax 2.8 (Image 94) Liver background parenchymal FDG uptake: SUVMax 3.3 (image 138) HEAD AND NECK: Limited evaluation of the brain parenchyma demonstrates intense symmetric FDG uptake in the visualized cerebellum Paranasal sinuses: clear Lymph nodes: Prominent mildly FDG avid bilateral cervical lymph nodes measuring up to 0.6 cm on the right (max 2.4), these are favored physiologic Tongue/Tonsillar tissue: Physiologic oropharyngeal uptake is present Thyroid: No FDG avid lesions Vascular: Mild atherosclerotic plaque is present CHEST: Lymph nodes: No FDG avid or enlarged supraclavicular, mediastinal, hilar, or axillary lymph nodes Lungs: Stable 2 decreased size of a lobulated solid right upper lobe nodule measuring 1.1 x 1.3 cm without FDG uptake, previously measuring up to 1.4 cm. Pleura: No pleural effusions or hypermetabolic lesions Chest wall: No FDG avid lesions Heart: Mild coronary artery calcifications. Moderate thoracic aortic calcifications. No pericardial effusion Other: None ABDOMEN AND PELVIS: Liver: No FDG avid lesions Gallbladder: Normal noncontrast appearance Spleen: Normal in size and noncontrast appearance Pancreas: No FDG avid lesions Adrenals: Bilateral adrenal gland thickening with mild FDG uptake below baseline, likely physiologic Bowel: Physiologic FDG uptake is seen in the bowel. No definite focally FDG avid lesion. Focal hypermetabolic activity of the distal esophagus (SUV max 7.7, image 124). Focal hypermetabolic activity within the anterior rectum without underlying CT correlate (SUV max 5.1, image 270) Kidney/Bladder: Normal physiologic excretion of the radiopharmaceutical. No FDG avid lesions. Bilateral pelviectasis Ascites: None Lymph nodes: No FDG avid or enlarged abdominal, retroperitoneal, or pelvic adenopathy Vasculature: Normal caliber abdominal aorta Other: None MUSKULOSKELETAL: Bones: Physiologic marrow uptake is present in the axial and proximal appendicular skeleton. No aggressive osseus lesions Soft tissue: No FDG avid lesion Other: None Impression: 1. Stable to slightly decreased size of a right upper lobe pulmonary nodule without FDG uptake. 2. Focal hypermetabolic activity of the distal esophagus may represent esophagitis. 3. Focal hypermetabolic activity within the anterior rectum may be physiologic or secondary to proctitis. 4. Bilateral adrenal gland thickening without focal FDG uptake. Dictated by Anjana Chan MD @ 10/23/2024 11:13:06 AM (Electronically Signed)
== END 2024-10-19 15:28 | disposition home or self-care (01) ==
LOC: RAD 15:28
PROVIDERS: PCP Family Medicine; Visit Provider Internal Medicine
DX: R91.1 Solitary pulmonary nodule (principal); E27.9 Disorder of adrenal gland, unspecified
CPT/HCPCS: 78815; A9552

== ENCOUNTER 2024-11-03 09:26 | Outpatient (CLI) | payer BC, SELFPAY ==
--- NOTE | 2024-11-03 10:55 | P.ANES_ITS ---
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
--- NOTE | 2024-11-03 10:55 | W.ANESCHARGE ---
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
== END 2024-11-03 09:27 | disposition home or self-care (01) ==
LOC: OP CLINIC 09:27
PROVIDERS: PCP Family Medicine; Visit Provider Internal Medicine Gastroenterology
DX: Z12.11 Encounter for screening for malignant neoplasm of colon (principal); D12.0 Benign neoplasm of cecum; D12.3 Benign neoplasm of transverse colon; D12.8 Benign neoplasm of rectum
CPT/HCPCS: 00811; 00812; 45385; 88305; J2704